=== PATIENT | female | born 1990 | race Caucasian/White ===

== ENCOUNTER 2017-07-31 22:29 | Emergency (ER) | payer OTHER ==
[2017-07-31 22:35] VITALS: BP 130/80; PULSE 65; TEMP 97.8; BMI 27.1
[2017-07-31] MEDS ORDERED: morphine CARPU-JECT 4 MG/1 ML DISP.SYRIN IVPUSH ONE (23:14)
[2017-07-31] MEDS ORDERED: METOCLOPRAMIDE HCL INJECTION 10 MG/2 ML VIAL IVPB ONE (23:14)
[2017-07-31] MEDS ORDERED: SODIUM CHLORIDE 1,000 ML IV ONE (23:14)
--- NOTE | 2017-07-31 23:22 | PDOC ---
History of Present Illness - General Chief Complaint: Pain Stated Complaint: VOMITING/DIARRHEA Time Seen by Provider: 07/31/17 22:56 History Source: Patient Exam Limitations: No Limitations - History of Present Illness Initial Comments: 07/31/17 23:18 Healthy 27-year-old female with no significant past medical or surgical history presents with 2 days complaints of abdominal pain, associated with vomiting and diarrhea. Patient reports gradual onset of diffuse, constant, crampy abdominal pain that has been persistent, progressive in severity. The pain began yesterday morning, was associated with several episodes of nonbloody nonbilious vomiting that continued until this evening, nonbloody diarrhea that stopped last night. Positive flatus, decreased appetite today. Chills but no fever, denies any dysuria. No diet change, no recent sick contacts, no travel, no recent antibiotics, no history of recurring GI illnesses. Took Advil for pain, presents for evaluation. LMP this month, no vaginal bleeding or discharge. Past History - Past Medical History Allergies/Adverse Reactions: Allergies Allergy/AdvReac Type Severity Reaction Status Date / Time No Known Drug Allergies Allergy Verified 07/31/17 22:32 Home Medications: Ambulatory Orders Metoclopramide HCl [Reglan] 10 mg PO BID PRN #14 tablet 08/01/17 Anemia: No Asthma: No Cancer: No Cardiac Disorders: No CVA: No COPD: No CHF: No Dementia: No Diabetes: No GI Disorders: Yes (ACID REFLUX) Disorders: Yes (KIDNEY STONES 6 YEARS AGO,UTI) HTN: No Hypercholesterolemia: No Seizures: No Thyroid Disease: Yes (ENLARGED GOITER-ON SYNTHROID-OFF MEDICINES) - Surgical History Abdominal Surgery: No Appendectomy: No Cardiac Surgery: No Cholecystectomy: No Lung Surgery: No Neurologic Surgery: No Orthopedic Surgery: No - Immunization History Immunization Up to Date: Yes - Suicide/Smoking/Psychosocial Hx Smoking Status: No Smoking History: Never smoked Have you smoked in the past 12 months: No Number of Cigarettes Smoked Daily: 0 Information on smoking cessation initiated: No Hx Alcohol Use: No Drug/Substance Use Hx: No Substance Use Type: None Hx Substance Use Treatment: No Review of Systems - Review of Systems Constitutional: Yes: Chills. No: Fever Respiratory: No: Cough, Shortness of Breath Cardiac (ROS): No: Chest Pain ABD/GI: Yes: See HPI : No: Dysuria, Flank Pain Neurological: No: Headache All Other Systems: Reviewed and Negative *Physical Exam - Vital Signs Last Vital Signs Temp Pulse Resp BP Pulse Ox 97.8 F 65 16 130/80 100 07/31/17 22:32 07/31/17 22:32 18 22:32 07/31/17 22:32 07/31/17 22:32 - Physical Exam Comments: 07/31/17 23:20 Vital signs normal, no tachycardia, afebrile. GENERAL: Alert lying in stretcher, speaking full sentences, slight distress from stomach discomfort HEAD: Normal with no signs of trauma. EYES: PERRL, EOMI, sclera anicteric, conjunctiva clear with no pallor. ENT: oropharynx clear. Slightly dry mucous membranes. NECK: Normal range of motion, supple without lymphadenopathy, JVD, or masses. LUNGS: Breath sounds equal, clear to auscultation bilaterally. No wheeze/ crackles. HEART: Regular rate and rhythm, normal S1 and S2 without murmur or rub. ABDOMEN: Soft/nondistended. BS wnl. Diffuse discomfort to palpation without guarding or rebound. No palpable masses. No hepatosplenomegaly. No CVA tenderness. EXTREMITIES: Normal range of motion, no edema. 2+ distal pulses. No cords, erythema, or tenderness. NEUROLOGICAL: Cranial nerves II through XII grossly intact. Normal speech, normal gait. PSYCH: Normal mood, normal affect. SKIN: Warm, Dry, no rashes or lesions noted. ED Treatment Course - LABORATORY CBC & Chemistry Diagram: 07/31/17 23:45 07/31/17 23:45 Medical Decision Making - Medical Decision Making 07/31/17 23:22 Healthy 27-year-old female with intermittent abdominal pain/vomiting/diarrhea syndrome for about 2 days, now with persistent abdominal pain. No localizing findings on exam to suggest focal infectious process, hemodynamically stable. Presentation seems most consistent with gastroenteritis, likely viral. Rule out acute pancreatic or biliary pathology. Labs, urinalysis IV fluids, antiemetics, pain control Reassess 08/01/17 01:38 slight wbc 11.4 with 84% neutrophils. Chem delayed but pending. UA pending. Feels much better after meds, still with some cramping. abd remains nonfocal, no localized guarding/rebound. 08/01/17 02:14 Urine negative, chemistries within normal limits including lipase and LFTs, urinalysis without evidence of infection. Tolerating by mouth, abdomen remains nonfocal, agrees with discharge plan and understands return criteria. *DC/Admit/Observation/Transfer Diagnosis at time of Disposition: Vomiting and diarrhea - Discharge Dispostion Disposition: HOME Condition at time of disposition: Improved - Prescriptions Prescriptions: Metoclopramide HCl [Reglan] 10 mg PO BID PRN #14 tablet PRN Reason: Nausea - Referrals Referrals: Heath Johnson MD [Primary Care Provider] - - Patient Instructions Printed Discharge Instructions: DI for Viral Gastroenteritis -- Adult, DI for Ileus Additional Instructions: Activity as tolerated. Stay hydrated. Advance diet as tolerated, avoiding dairy , spicy or fatty foods, caffeine and alcohol. Blood tests showed no acute abnormalities. The vomiting and diarrhea are likely viral, and should improve over the next 1-2 days. Take Reglan as prescribed as needed for nausea. The constipation should also improve, but if it does not you can take over-the- counter MiraLAX, one capful daily. Continue your medications as previously prescribed by your physician. You should follow up with your primary doctor as soon as possible regarding today's emergency department visit. Return to the emergency department for any new or concerning symptoms, particularly persistent or worsening abdominal pain, persistent vomiting or inability to have bowel movement, fevers or chills, more localized abdominal pain. - Post Discharge Activity
[2017-07-31] MEDS ORDERED: FAMOTIDINE 20 MG/50 ML IVPB 20 MG/50 ML MG IVPB ONE ×2 (23:30→23:43)
[2017-07-31] MEDS ORDERED: METOCLOPRAMIDE HCL INJECTION 10 MG/2 ML VIAL ONE (23:43)
[2017-07-31] MEDS ORDERED: MORPHINE SULFATE 10 MG/1 ML *VIAL ONE (23:44)
[2017-08-01 00:08] LABS: BASO % 0.4 % (0-2.0); EOS % 0.2 % (0-4.5); HEMATOCRIT 41.2 % (32.4-45.2); HEMOGLOBIN 13.6 GM/dL (10.7-15.3); LYMPH % 8.3 % (8-40); MCHC 33.1 g/dl (32.0-36.0); MEAN CELL VOLUME 90.5 fl (80-96); MEAN PLT VOLUME 10.4 fl (7.5-11.1); MONO % 6.9 % (3.8-10.2); NEUT % 84.2 % (42.8-82.8); PLATELET COUNT 226 K/MM3 (134-434); RBC 4.55 M/mm3 (3.60-5.2); RDW 13.2 % (11.6-15.6); WHITE BLOOD COUNT 11.4 K/mm3 (4.0-10.0)
[2017-08-01 01:43] LABS: ALBUMIN 3.8 g/dl (3.4-5.0); ANION GAP 10 (8-16); BLOOD UREA NITROGEN 8 mg/dL (7-18); CALCIUM 8.7 mg/dL (8.5-10.1); CHLORIDE 103 mmol/L (98-107); CO2 26 mmol/L (21-32); CREATININE 0.8 mg/dL (0.55-1.02); GLUCOSE,RANDOM 95 mg/dL (74-106); LIPASE 95 U/L (73-393); SGOT/AST 13 U/L (15-37); SGPT/ALT 18 U/L (12-78); SODIUM 139 mmol/L (136-145)
[2017-08-01 01:45] LABS: ALK PHOS 98 U/L (45-117); BILIRUBIN,TOTAL 0.3 mg/dL (0.2-1.0); TOT PROT 7.2 g/dl (6.4-8.2)
[2017-08-01 01:51] LABS: URINE APPEARANCE CLEAR; URINE BILIRUBIN NEGATIVE (NEGATIVE); URINE BLOOD 2+ (NEGATIVE); URINE COLOR LTYELLOW; URINE GLUCOSE (UA) NEGATIVE (NEGATIVE); URINE KETONE 1+ (NEGATIVE); URINE LEUK ESTERASE NEGATIVE (NEGATIVE); URINE NITRITE NEGATIVE (NEGATIVE); URINE PROTEIN NEGATIVE (NEGATIVE); URINE UROBILINOGEN NEGATIVE mg/dL (0.2-1.0)
[2017-08-01 02:24] LABS: EPI CELLS RARE /HPF (FEW); URINE BACTERIA RARE /hpf (NONE SEEN); URINE MUCUS FEW
== END 2017-08-01 02:41 | disposition home or self-care (01) ==
LOC: JER 22:29
PROC: 3E033GC Introduction of Other Therapeutic Substance into Peripheral Vein, Percutaneous Approach (ICD-10-PCS; principal; 2017-07-31)
PROC: 3E033GC Introduction of Other Therapeutic Substance into Peripheral Vein, Percutaneous Approach (ICD-10-PCS; 2017-07-31)
PROC: 3E033NZ Introduction of Analgesics, Hypnotics, Sedatives into Peripheral Vein, Percutaneous Approach (ICD-10-PCS; 2017-07-31)
DX: B97.89 Other viral agents as the cause of diseases classified elsewhere (principal)
CPT/HCPCS: 36415; 80053; 81003; 81015; 83690; 83735; 84703; 85025; 99283-25; J7030